=== PATIENT | male | born 1955 | race Caucasian/White ===

== ENCOUNTER → 2018-10-20 | Outpatient (CLI) | payer SELFPAY ==
--- NOTE | 2018-10-20 16:57 | RADIOLOGY IMAGING REPORT ---
[place] [facility] [place] NAME: Kendall Man : 1955 MR: [id number] V: [id number] EXAM DATE: ORDERING PHYSICIAN: CYN DUONG TECHNOLOGIST: Location: [facility] [place] Patient: Kendall Man : 1955 Visit/Account:[id number] Date of Sevice: 10/20/2018 Exam type: CALCANEUS (HEEL) RIGHT History: Right heel pain after biking the samples Comparison: None. Findings: Two views of the right os calcis demonstrates no evidence of acute fracture or dislocation. There is very mild spurring at the insertion of the Achilles tendon.. IMPRESSION: 1. Very mild spurring at the insertion of the Achilles tendon Report Dictated By: Nazanin Olguin MD at 10/20/2018 4:50 PM Report E-Signed By: Nazanin Olguin MD at 10/20/2018 4:51 PM WSN:[id number]
== END ==
LOC: RAD 14:32
PROVIDERS: ATTEND Nurse Practitioner Family
DX: S86.012A Strain of left Achilles tendon, initial encounter (principal); M79.641 Pain in right hand